=== PATIENT | male | born 1985 | race Caucasian/White ===

== ENCOUNTER 2017-05-22 21:01 | Emergency (ER) | payer OTHER ==
[~2017-05-22] VITALS: Ht 175.3 cm; Wt 83.9 kg
[2017-05-22 21:45] VITALS: BP 120/83
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
== END 2017-05-22 23:47 | disposition home or self-care (01) ==
LOC: ER 21:01
DX: Z02.83 Encounter for blood-alcohol and blood-drug test (principal)
CPT/HCPCS: 99281